=== PATIENT | female | born 1960 | race Caucasian/White ===

== ENCOUNTER 2016-09-05 10:54 | Inpatient (IN) | payer OTHER ==
--- NOTE | ~2016-09-05 | DS ---
Discharge Summary [address] [place]. [address] NAME: DIANA VERNON : 62 STATUS : ADM IN [facility]#: [id number] AGE: 56 ADM/REG DATE : 09/05/16 MR#: [id number] REPORT SERV DATE: 09/08/16 DICTATED BY: YANIRA ADAMS DATE: 09/08/16 REPORT STATUS : Draft TRANSCRIBED BY: MODL DATE: 09/08/16 ADMISSION DATE: 09/05/2016 DISCHARGE DATE: 09/08/2016 DIAGNOSES ON ADMISSION: 1. Status post left distal femoral fracture. 2. History of chronic obstructive pulmonary disease, stable. 3. Diabetes mellitus type 2. 4. History of rheumatoid arthritis. 5. History of obstructive sleep apnea. 6. 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 7. History of rheumatoid arthritis and osteoarthritis. 8. Morbid obesity. 9. Hyperlipidemia. 10.Anxiety. 11.History of estrogen deficiency. 12.Hypothyroidism. DIAGNOSES ON DISCHARGE: 1. Status post surgery for left femoral fracture per Dr. Acuna. 2. Chronic obstructive pulmonary disease, stable. 3. Diabetes, controlled. 4. Hypertension, controlled. 5. Chronic medical problems such as rheumatoid arthritis, controlled. No evidence of Guillain-[place] syndrome now. 6. Chronic pain, controlled. 7. Morbid obesity. CONSULTANTS ON THE CASE: Dr. Acuna, orthopedist and his nurse practitioner Kasia. Surgery on the left femur done on 09/06/2016, complex left total knee arthroplasty with long stems and open reduction and internal fixation of the distal femoral fracture. HISTORY OF PRESENT ILLNESS: Per dictation of Dr. Brunson on 09/05/2016. HOSPITAL COURSE: Briefly, the patient had uneventful hospital course. She underwent after surgery, which was done by Dr. Acuna. The patient was stable, doing well. She is doing physical therapy and plan the patient to go home. Dr. Acuna recommended the patient to follow up with him in a week or two as well as Kasia Hernadez give recommendations for Coumadin anticoagulation as well as the pain control was given per Dr. Kalpana Pedroza's nurse practitioner as well as the Coumadin. We will recommend to continue most of the home medications. Only I recommended to decrease the dose of glimepiride. She needs to decrease it to 2 mg twice a day because the patient reported that she had hypoglycemic episodes at home and I discussed with her risk of hypoglycemia as well as I told her to decrease to 2 mg twice daily to monitor her blood sugar and follow up with Dr. Pryor in a week regarding blood sugar control. Also, I told her if the blood sugar will be low, then she needs to go Discharge Summary [address] [facility]. [address] NAME: DIANA VERNON : 62 STATUS : ADM IN PAT#: [id number] AGE: 56 ADM/REG DATE : 09/05/16 MR#: [id number] REPORT SERV DATE: 09/08/16 DICTATED BY: YANIRA ADAMS DATE: 09/08/16 REPORT STATUS : Draft TRANSCRIBED BY: ALMA DATE: 09/08/16 down to 1 mg twice a day. Also, she was told to avoid nonsteroidal anti-inflammatory including naproxen since she is going to be on Coumadin. She is okay to continue her hormones, which is Estrace 1 mg daily, Zantac 150 b.i.d., ferrous sulfate 325 t.i.d., Lasix 80 mg a day, Neurontin 600 three times a day, Klonopin 0.5 three times a day, Lopid 600 p.o. b.i.d., magnesium oxide 800 daily, Depo-Provera 2.5 mg a day, paroxetine 30 mg a day, potassium chloride 20 mEq twice a day, pravastatin 20 mg daily, Requip 3 mg at bedtime, [place] Thyroid 120 daily, Coumadin sliding scale prescription given by Kasia nurse practitioner of Dr. Acuna, hydralazine 10 mg q.8h, tramadol 50 mg q.4h p.r.n., Symbicort two puffs inhaled twice a day, albuterol one puff inhaled q.4h p.r.n., Abilify 10 mg at bedtime, lorazepam 0.5 twice a day, MiraLAX one packet daily, metformin 1000 b.i.d., omega-3 fatty acid 2 g daily, Omegared one capsule daily, DHEA daily, Benadryl 25 at bedtime, glimepiride dose decreased to 2 mg twice a day, continue testosterone. The patient was discharged in a stable condition according to recommendation of orthopedist. Spent 45 minutes on discharge. MG/MODL Yanira Adams M.D. / [id number] CC: Sheri Burden M.D. W. Timothy Ballard, M.D.
--- NOTE | ~2016-09-05 | HP ---
History And Physical [address] [place]. [address] NAME: DIANA VERNON : 62 STATUS : ADM IN [facility]#: [id number] AGE: 56 ADM/REG DATE : 09/05/16 MR#: [id number] REPORT SERV DATE: 09/07/16 DICTATED BY: RAFAT ACUNA DATE: 09/06/16 REPORT STATUS : Draft TRANSCRIBED BY: ALMA DATE: 09/06/16 DATE OF ADMISSION: 09/05/2016 CHIEF COMPLAINT: Left knee pain. HISTORY: A 56-year-old female with severe incapacitating left knee pain for many years, got out of a [employer]kley chair according to her at [facility], fell, and fractured her knee about three weeks ago. She has been seen in the ER at another place about three times and then came in yesterday and requested me for evaluation and treatment. She has really had no treatment she said except for a knee immobilizer at this point. ALLERGIES: PHENAZOPYRIDINE. MEDICATIONS: See chart. PAST MEDICAL HISTORY: Myasthenia gravis, hypertension, hypercholesterolemia, chronic bronchitis, COPD, cellulitis, hypothyroidism, depression, anxiety. PAST SURGICAL HISTORY: Thymectomy in 1978, LORRAINE in 1995, appendectomy and ovary wedge resection in 2008, laser of the vulva for condyloma, thyroidectomy, renal stone, removal of kidney. SOCIAL HISTORY: Vape for about three years. No alcohol or illicit drug use. FAMILY HISTORY: No anesthetic complications. REVIEW OF SYSTEMS: As above. PHYSICAL EXAMINATION: GENERAL: She is alert and oriented x3, in distress as far as the knee goes; otherwise comfortable. HEENT: Atraumatic, normocephalic. NECK: Supple. CHEST: Symmetric and nontender. LUNGS: Per AA evaluation. CV: Regular. ABDOMEN: Soft, no mass. VITAL SIGNS: Afebrile, vital signs stable. EXTREMITIES: Both upper extremities, right lower extremity without acute trauma. Left knee with obvious effusion, pain, and obvious deformity. SKIN: Intact, warm and supple. 2+ pulses. NEURO: Sensorimotor without deficit. X-RAY: Severe end-stage DJD, now with a long intercondylar, supracondylar distal femur fracture. History And Physical [address] [place] [address] NAME: DIANA VERNON : 62 STATUS : ADM IN PAT#: [id number] AGE: 56 ADM/REG DATE : 09/05/16 MR#: [id number] REPORT SERV DATE: 09/07/16 DICTATED BY: RAFAT ACUNA DATE: 09/06/16 REPORT STATUS : Draft TRANSCRIBED BY: MODL DATE: 09/06/16 ASSESSMENT: Complex left distal femur fracture and severe degenerative joint disease. PLAN: ORIF/knee replacement. Risks, benefits, etc. explained. The patient wishes to proceed. WTB/MODL Michaela Acuna M.D. / [id number] CC: Sheri Burden M.D.
--- NOTE | ~2016-09-05 | OP ---
Record Of Operation [facility] [address] [place]. [address] NAME: DIANA VERNON : 62 STATUS : ADM IN PAT#: [id number] AGE: 56 ADM/REG DATE : 09/05/16 MR#: [id number] REPORT SERV DATE: 09/08/16 DICTATED BY: RAFAT RO DATE: 09/07/16 REPORT STATUS : Draft TRANSCRIBED BY: MODL DATE: 09/07/16 DATE OF PROCEDURE: 09/06/2016 PREOPERATIVE DIAGNOSES: Left knee severe end-stage degenerative joint disease with an intercondylar/distal femoral fracture. POSTOPERATIVE DIAGNOSES: Left knee severe end-stage degenerative joint disease with an intercondylar/distal femoral fracture. PROCEDURE: Complex left total knee arthroplasty with long stems and ORIF distal femur fracture. SURGEON: Michaela Ro M.D. LEATHER SOFTENER: See chart. DESCRIPTION OF PROCEDURE: The patient was taken to the operating room and placed supine on the table in normal fashion without incident. General anesthetic was induced per the anesthesiologist. The patient was carefully positioned, padded, prepped, and draped in normal sterile fashion. Left lower extremity exsanguinated and tourniquet inflated to 350. Sharp dissection was made to straight midline longitudinal incision and electrocautery through the fat. Sharp quad splitting approach was carried out. The patella was subluxed, arthrofibrotic bleb was decompressed. There was an unstable fracture of the medial femoral condyle that went well up into the metaphysis and was an intercondylar fracture right between the two condyles. These were held, anatomically reduced with a large fracture reduction forceps. The knee was brought up into flexion after lifting anterior and medial soft tissue of the anterior medial tibia and removing the posterior half of the fat pad. The ACL and PCL were excised in anterior to posterior fragment. Standard drill hole was placed in the distal femur followed by sequential reamer for 150 mm stem. Intramedullary guide was used to cut the distal femur, anterior and posterior cuts, anterior and posterior chamfer cuts and a box cut, while all holding, the condyles reduced with fracture reduction forceps. A trial component was then placed and attention directed to the tibia after removing the medial and lateral meniscal fragments. Extramedullary guide was used to cut the proximal tibia with the trial tibial component placed, there was excellent medial and lateral balance and excellent flexion and extension balance. The patella was cut with an oscillating saw after using patellar caliper and then drilled with the patellar drill guide. With the trial patella in place, there was excellent fixation. There was excellent balance. All surfaces were copiously irrigated with pulsatile lavage. Vacuum mixed cement was pressurized in the tibia, tibial component placed, impacted, and excess cement removed. Cement was pressurized in the femur and placed on the posterior runners of the femoral component which was placed, impacted, and excess cement removed. The patellar component placed, held with a clamp, and excess cement removed. Once all cement was hardened, the knee was taken through range of motion. While the cement was still wet, I placed two 4.5 screws one anterior to the stem and one posterior to the stem, gave an additional fixation to the fracture fragment at the metaphyseal level of distal femur. This gave us excellent fixation after trial, trying multiple inserts, chose the correct insert, excess cement was Record Of Operation [address] [address] NAME: DIANA VERNON : 62 STATUS : ADM IN [facility]#: [id number] AGE: 56 ADM/REG DATE : 09/05/16 MR#: [id number] REPORT SERV DATE: 09/08/16 DICTATED BY: RAFAT RO DATE: 09/07/16 REPORT STATUS : Draft TRANSCRIBED BY: ALMA DATE: 09/07/16 removed with an osteotome. Insert was placed, impacted, checked to be sure it was sound and snug knee, closed in a layered fashion over a medium ConstaVac drain superolaterally. The wound dressed sterilely. The patient wakened and taken to the postanesthesia care unit without incident. COMPLICATIONS: None. SPECIMENS: None. ESTIMATED BLOOD LOSS: Trace. WTB/MODL Michaela Ro M.D. / [id number] CC: Sheri Burden M.D.
--- NOTE | ~2016-09-05 | HP ---
History And Physical [address] [place]. [address] NAME: DIANA VERNON : 62 STATUS : ADM IN [facility]#: [id number] AGE: 56 ADM/REG DATE : 09/05/16 MR#: [id number] REPORT SERV DATE: 09/05/16 DICTATED BY: KORTNEY RADFORD DATE: 09/05/16 REPORT STATUS : Draft TRANSCRIBED BY: MODRyan DATE: 09/05/16 DATE OF ADMISSION: 09/05/2016 REASON FOR ADMISSION: Fractured left distal femur. 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 Jerzy Pryor through [facility]. She was getting out of out of her Berkley wheelchair while at [employer] about five days ago. She did a valgus stress maneuver on her left leg to stand up and has been having pain ever since. The pain got acutely worse last night. She came to the emergency room for evaluation, where x-ray has shown a distal left femur fracture. Dr. Acuna has been consulted, planning for surgery tomorrow. The hospitalists are planning to admit. The patient does have a history of COPD. She stopped smoking several years ago. She uses a vapor cigarette, electronic cigarette now. She lives in [place] and has been there all of her life. She has multiple medical problems, all of which are presently at some point of stability. MEDICATIONS: She is on the following medication: Albuterol one puff every four hours as needed, Abilify 10 mg p.o. at bedtime, aspirin 81 mg p.o. daily, Symbicort 160/4.5 two puffs b.i.d., clonazepam 0.5 mg three times a day, Ativan 0.5 mg p.o. b.i.d., Benadryl 25 mg at bedtime, estradiol 1 mg p.o. daily, ferrous sulfate 325 p.o. three times a day, furosemide 80 mg p.o. daily, gabapentin 600 mg p.o. t.i.d., gemfibrozil 600 mg p.o. b.i.d., glimepiride 4 mg p.o. b.i.d., hydralazine 10 mg p.o. q.8 hours, magnesium oxide 800 mg p.o. daily, medroxyprogesterone 2.5 mg p.o. daily, metformin 1000 mg p.o. b.i.d., Naprosyn 500 mg p.o. b.i.d., paroxetine 40 to 60 mg p.o. daily, MiraLAX 1 mg p.o. daily, potassium chloride 20 mEq p.o. b.i.d., DHEA three tablets p.o. daily, pravastatin 20 mg p.o. at bedtime, ranitidine 150 mg p.o. b.i.d., ropinirole 3 mg p.o. at bedtime, Thyroid [place] 120 mg p.o. daily, tramadol 50 mg p.o. q.4 hours p.r.n. for rheumatoid arthritis pain, omega-3 esters 2 g p.o. b.i.d., Omegared one capsule daily, testosterone compound one application daily of compounded testosterone. PAST MEDICAL HISTORY: Her other medical problems include COPD with possible obstructive sleep apnea. She has been scheduled for a sleep test. She is followed by Dr. Jose Raul Camacho for her COPD, but mostly, Yamilet Godinez. She has osteoarthritis, rheumatoid arthritis, hypertension, diabetes type 2, obesity, leg swelling, chronic pain, osteoporosis, and a history of Guillain-[place] syndrome back in 1978 while she was still in high school at [employer]. She had thymectomy in 1978 and appendectomy in 1995. She was diagnosed with Guillain-[place] syndrome by Dr. Armand Zamora after having been seen by Dr. Katy Dent for about a year prior to that, although with a thymectomy, wonder if myasthenia gravis was considered at some point. SOCIAL HISTORY: She quit smoking several years ago. She graduated from high school in 1978, History And Physical [address] 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 She gave up smoking about two years ago. She has had no alcohol use. She lives with her in an apartment behind [address]. She attended [employer] in the past. She is and lives with her . Has no children. She does not take any alcohol. REVIEW OF SYSTEMS: She has had no chest pain. No increasing shortness of breath. No wheezing. No fits, seizures, convulsions, unilateral weakness, melena, hematemesis, nausea, or diarrhea. PHYSICAL EXAMINATION: VITAL SIGNS: Blood pressure is 147/72 with a heart rate of 88, respiratory rate 18, afebrile. HEENT: EOMI. Sclerae are clear. Conjunctivae pink. NECK: No bruit. No JVD. GENERAL: The patient is obese, writhing in pain, sitting in a wheelchair. CHEST: Clear to A and P. HEART: Regular S1, S2 without murmur, gallop, or click. BREASTS: Grossly without mass. ABDOMEN: Obese, protuberant, nontender. No landmarks are palpable. EXTREMITIES: Have trace edema bilaterally. She does have dryness of the skin bilaterally. She does have swelling of the left knee with warmth over the left knee. No redness. It is very tender to touch. Extremities have no pulses palpable in the seated position. NEUROLOGIC: Her bathroom tiling professional is equal and symmetric bilaterally. Coordination is intact. She has no tremor. PSYCHIATRIC: She is alert, oriented, able to give history with speech cogent, and goal directed. LYMPHATICS: There is no adenopathy palpable. SKIN: Dryness. Stasis changes on the anterior shins bilaterally with slight edema. LABORATORY DATA: Sodium 139, potassium 3.5, creatinine 0.88, BUN 14, glucose was 72, calcium 9.6. Her hemoglobin was 12.6, hematocrit 41.3, white count 11.3, platelets were 356. INR is 1.0. The x-ray of the left knee did show evidence of oblique fracture of the distal femur extending into the intraarticular area with some intraarticular swelling. ASSESSMENT: 1. Oblique fracture, left distal femur for surgery in a.m. by Dr. Acuna. We will go ahead and give her subcu heparin and hold the dose before surgery. 2. Chronic obstructive pulmonary disease, stable. 3. Possibly some right heart failure with use of Lasix. History And Physical [address] [place]. [address] NAME: DIANA VERNON : 62 STATUS : ADM IN [facility]#: [id number] AGE: 56 ADM/REG DATE : 09/05/16 MR#: [id number] REPORT SERV DATE: 09/05/16 DICTATED BY: KORTNEY RADFORD DATE: 09/05/16 REPORT STATUS : Draft TRANSCRIBED BY: MODL DATE: 09/05/16 4. Pain, left knee. 5. Adult-onset diabetes mellitus. 6. Hypertension. 7. Rheumatoid arthritis. 8. Osteoarthritis. 9. Obstructive sleep apnea. 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 11.Chronic pain from rheumatoid arthritis mostly in the wrist and hands, on hydrocodone daily at home, though this is not listed as a home medication. 12.Obesity. 13.Osteoporosis. 14.Hyperlipidemia. 15.Anxiety, on two different anxiolytics. We will stop the clonazepam and use the Ativan solely. 16.Hyperlipidemia. 17.Estrogen deficiency, on combined estrogen and progesterone therapy. 18.Hypothyroidism, replaced. 19.Restless legs syndrome. 20.Testosterone compounded she is taking daily may induce a hypercoagulable state in this situation. We will discontinue that at this time. PLAN: Going for surgery tomorrow. Planning for Dr. Acuna to do the surgery. She will follow back up with sleep study, Dr. Camacho. ROSALINDA/NOAHL Kortney Radford M.D. / [id number] CC: Sheri Yang M.D. W. Timothy Ballard, M.D. Michael Dant, M.D. Michael T Czarnecki, M.D.
[~2016-09-05 10:54] MED LIST: ABILIFY10 PO; ABILIFY5 PO; ALBUTEROL0.63 MG/3 INH; ALBUTEROL5 INH; AMARYL4 PO; AMB10 PO; APRES10B PO; ARMOUR THYRO120 MG PO; ARMOUR THYRO30 MG PO; ARMOUR THYRO60 MG PO; ASAB PO; ATV.5 PO; AUG875 PO; BACDS PO; CALTRA600D PO; CELEXA40 MG PO; CLARIT10 PO; COENZYME Q10 PO; CORICIDI1 PO; DEMA20 PO; DHE1 PO; ESTRACE1 MG PO; ESTRATESHS PO; ESTRATEST PO; FERROUS SULF325 M1 PO; FISH-EPA1000 MG PO; FORTESTA60 GM TOP; GLUCOPHAGE1000 MG PO; GLUCPH PO; HALF81 PO; IBU-200200 MG PO; IRON325 MG PO; IVVIBRA; K500 PO; KDUR10 PO; KENALOG IN ORABA5 GM; KLONO1 PO; KLONO5 PO; KLOR-CON M2020 MEQ PO; L80 PO; LEVAQUIN750 MG PO; LEVOTHROID200 MCG PO; LIDOCAINE VISCOUS 2% TOP; LISTERINE PO; LOPID6 PO; LOTRISONE CREAM45 GM; LOVAZA1 GM PO; MAGOX4 PO; MEDROXYPR AC2.5 MG PO; MIRALAX POWDER1 PKT PO; MIRALAXPKT PO; MONODOX100 MG PO; MULTIVIT/MIN PO; NATURA2 OPH; NEOSPORIN OINT15 GM TOP; NEUR300 PO; NEUR600 PO; NORCO1 TA2 PO; NORCO1 TAB PO; NYS500UDL PO; NYS500UDL PO/LIQ; OMNICEF300 PO; P10 PO; P5 PO; PAX20 PO; PAXIL30 MG PO; PEPTO BISMOL LIQ1 ML PO; PERCOCET1 TA2 PO; PRAVAC PO; PRIN10 PO; PROAIR HFA INH; PROVENTSOL INH; PROVERA5 MG PO; PROVHFA INH; PTU PO; RANITIDINE300 MG PO; REFRESH OPH; REMERON30 MG PO; REMERON45 MG PO; REQUIP3 PO; STERAPRED DS10 MG; STOOL SOFTNER OTC PO; SUDAFED PO; TESTOSTERONE 2% TOP; VENTOLIN HFA INH; VITAMIN B PO; VITAMIN B-121000 MC1 SL; VITAMIN B12 PO; VOLT75 PO; VOLTXR100 PO; ZANTAC150 MG PO; ZANTAC300 MG PO; [UNRECOGNIZED DRUG - OTHER] PO
[2016-09-05] MEDS ORDERED: OMEGA 3 ETHYL ESTERS PO (13:09)
[2016-09-05] MEDS ORDERED: L80 PO (13:11)
[2016-09-05] MEDS ORDERED: MEGA RED PO (13:11)
[2016-09-05] MEDS ORDERED: DHE1 PO (13:12)
[2016-09-05] MEDS ORDERED: BEN25 PO (13:13)
[2016-09-05] MEDS ORDERED: SYMBICORT 160/41 INH INH (13:15)
[2016-09-05] MEDS ORDERED: ULTRAM50 PO (13:16)
[2016-09-05] MEDS ORDERED: ESTRACE1 MG PO (13:16)
[2016-09-05] MEDS ORDERED: AMARYL4 PO (13:17)
[2016-09-05 13:19] LABS: BASOPHILS 0.1 %; BASOPHILS ABSOLUTE 0.01 10/3/uL (0.0-0.16); EOSINOPHILS 2.2 %; EOSINOPHILS ABSOLUTE 0.24 10/3/uL (0.0-0.53); ER CBC TAT 0 Hrs 12 Mins; HEMATOCRIT 41.3 % (36.0-48.0); HEMOGLOBIN 12.6 g/dL (12.0-16.0); IMMATURE GRANULOCYTES 0.1 %; IMMATURE GRANULOCYTES ABSOLUTE 0.01 10/3/uL (0.0-0.11); LYMPHOCYTES 16.3 %; MEAN CORPUS HGB CONC 30.5 g/dL (32.0-36.0); MEAN CORPUSCULAR HEMOGLOB 27.3 pg (26.0-34.0); MEAN CORPUSCULAR VOLUME 89.6 fL (80-100); MEAN PLATELET VOLUME 9.1 fL (9.2-13.0); MONOCYTES 4.3 %; MONOCYTES ABSOLUTE 0.47 10/3/uL (0.21-1.20); NEUTROPHILS ABSOLUTE 8.52 10/3/uL (2.02-8.40); PLATELET COUNT 356 10/3/uL (150-400); RED CELL COUNT 4.61 10/6/uL (4.0-5.6); WHITE BLOOD CELLS 11.1 10/3/uL (4.5-10.5)
[2016-09-05] MEDS ORDERED: NAP500 PO (13:19)
[2016-09-05 13:20] LABS: MANUAL DIFF NO %; RBC DISTRIBUTION WIDTH 21.8 % (12.0-16.0)
[2016-09-05] MEDS ORDERED: MEDROXYPR AC2.5 MG PO (13:20)
[2016-09-05] MEDS ORDERED: [UNRECOGNIZED DRUG - OTHER] TOP (13:22)
[2016-09-05 13:26] LABS: PROTIME (NOT ORD) 13.1 SEC (12.0-14.5)
[2016-09-05 13:27] LABS: PARTIAL THROMBO TIME 34.7 SEC (22.5-37.2)
[2016-09-05 13:28] LABS: CALCIUM, SERUM 9.6 MG/DL (8.5-10.4); CHLORIDE, SERUM 96 MMOL/L (96-112); CO2 (CARBON DIOXIDE) 34 MMOL/L (24-34); CREATININE 0.88 MG/DL (0.55-1.02); GFR AFRICAN AMERICAN 86 ML/MIN (>=60); GFR NON AFRICAN AMERICAN 74 ML/MIN (>=60); POTASSIUM, SERUM 3.5 MMOL/L (3.5-5.3); SODIUM, SERUM 139 MMOL/L (135-148)
[2016-09-05 13:30] LABS: BUN (BLOOD UREA NITROGEN) 14 MG/DL (6-23); GLUCOSE, SERUM 72 MG/DL (60-99)
[2016-09-06 04:50] LABS: BASOPHILS 0.2 %; BASOPHILS ABSOLUTE 0.02 10/3/uL (0.0-0.16); EOSINOPHILS 2.8 %; EOSINOPHILS ABSOLUTE 0.25 10/3/uL (0.0-0.53); HEMATOCRIT 39.2 % (36.0-48.0); HEMOGLOBIN 12.2 g/dL (12.0-16.0); IMMATURE GRANULOCYTES 0.2 %; IMMATURE GRANULOCYTES ABSOLUTE 0.02 10/3/uL (0.0-0.11); LYMPHOCYTES 32.9 %; LYMPHOCYTES ABSOLUTE 2.93 10/3/uL (0.67-4.30); MANUAL DIFF NO %; MEAN CORPUS HGB CONC 31.1 g/dL (32.0-36.0); MEAN CORPUSCULAR HEMOGLOB 28.3 pg (26.0-34.0); MEAN PLATELET VOLUME 8.5 fL (9.2-13.0); MONOCYTES 5.8 %; MONOCYTES ABSOLUTE 0.52 10/3/uL (0.21-1.20); NEUTROPHILS 58.1 %; NEUTROPHILS ABSOLUTE 5.17 10/3/uL (2.02-8.40); PLATELET COUNT 308 10/3/uL (150-400); RBC DISTRIBUTION WIDTH 21.4 % (12.0-16.0); RED CELL COUNT 4.31 10/6/uL (4.0-5.6); WHITE BLOOD CELLS 8.9 10/3/uL (4.5-10.5)
[2016-09-06 05:21] LABS: CALCIUM, SERUM 9.1 MG/DL (8.5-10.4); CHLORIDE, SERUM 101 MMOL/L (96-112); CO2 (CARBON DIOXIDE) 32 MMOL/L (24-34); CREATININE 0.75 MG/DL (0.55-1.02); GFR AFRICAN AMERICAN 104 ML/MIN (>=60); GFR NON AFRICAN AMERICAN 90 ML/MIN (>=60); GLUCOSE, SERUM 80 MG/DL (60-99); POTASSIUM, SERUM 3.5 MMOL/L (3.5-5.3); SODIUM, SERUM 140 MMOL/L (135-148)
[2016-09-06 05:23] LABS: BUN (BLOOD UREA NITROGEN) 10 MG/DL (6-23)
[2016-09-07 05:57] LABS: HEMOGLOBIN 9.9 g/dL (12.0-16.0)
[2016-09-07 05:58] LABS: HEMATOCRIT 32.5 % (36.0-48.0)
[2016-09-07 06:00] LABS: INTERNATIONAL NORMAL RATI 1.1 UNITS (-); PROTIME (NOT ORD) 14.1 SEC (12.0-14.5)
[2016-09-07 06:13] LABS: BUN (BLOOD UREA NITROGEN) 7 MG/DL (6-23); CALCIUM, SERUM 8.5 MG/DL (8.5-10.4); CHLORIDE, SERUM 102 MMOL/L (96-112); CO2 (CARBON DIOXIDE) 27 MMOL/L (24-34); GFR AFRICAN AMERICAN 113 ML/MIN (>=60); GFR NON AFRICAN AMERICAN 98 ML/MIN (>=60); POTASSIUM, SERUM 3.7 MMOL/L (3.5-5.3); SODIUM, SERUM 139 MMOL/L (135-148)
[2016-09-07 06:14] LABS: GLUCOSE, SERUM 104 MG/DL (60-99)
[2016-09-08 05:07] LABS: HEMATOCRIT 30.6 % (36.0-48.0); HEMOGLOBIN 9.5 g/dL (12.0-16.0)
[2016-09-08 05:12] LABS: INTERNATIONAL NORMAL RATI 2.7 UNITS (-)
[2016-09-08 05:16] LABS: PROTIME (NOT ORD) 28.7 SEC (12.0-14.5)
[2016-09-08 05:20] LABS: BUN (BLOOD UREA NITROGEN) 9 MG/DL (6-23); CALCIUM, SERUM 8.8 MG/DL (8.5-10.4); CHLORIDE, SERUM 99 MMOL/L (96-112); CO2 (CARBON DIOXIDE) 30 MMOL/L (24-34); CREATININE 0.75 MG/DL (0.55-1.02); GFR AFRICAN AMERICAN 104 ML/MIN (>=60); GFR NON AFRICAN AMERICAN 90 ML/MIN (>=60); POTASSIUM, SERUM 4.2 MMOL/L (3.5-5.3); SODIUM, SERUM 138 MMOL/L (135-148)
[2016-09-08 05:23] LABS: GLUCOSE, SERUM 198 MG/DL (60-99)
[2016-09-08] MEDS ORDERED: PCET PO (11:56)
[2016-09-08] MEDS ORDERED: C25 (11:56)
== END 2016-09-08 17:56 | disposition home or self-care (01) | DRG 470 ==
LOC: ER 10:54 → 3SO 13:04
PROVIDERS: Hospitalist; Internal Medicine; Physician Assistant; Specialist
PROC: 0SRD0J9 Replacement of Left Knee Joint with Synthetic Substitute, Cemented, Open Approach (ICD-10-PCS; principal; 2016-09-05)
PROC: 0QSC04Z Reposition Left Lower Femur with Internal Fixation Device, Open Approach (ICD-10-PCS; 2016-09-05)
DX: S72.402A Unspecified fracture of lower end of left femur, initial encounter for closed fracture (principal); Z68.41 Body mass index [BMI] 40.0-44.9, adult; I10 Essential (primary) hypertension; J44.9 Chronic obstructive pulmonary disease, unspecified; E11.9 Type 2 diabetes mellitus without complications; G47.33 Obstructive sleep apnea (adult) (pediatric); E78.5 Hyperlipidemia, unspecified; F41.9 Anxiety disorder, unspecified; E03.9 Hypothyroidism, unspecified; G25.81 Restless legs syndrome; E66.01 Morbid (severe) obesity due to excess calories
CPT/HCPCS: 73560-LT; 80048; 82962; 83735; 85014; 85018; 85025; 85610; 85730; 87641; 88305; 88311; 90686; 94640; 96372; 96374; 97116-GP; 97161-GP; 97165-GO; 97530-GP; 99285; A9270-GY; C1713; C1776; G0008; J0690; J1170; J1885; J2175; J2250; J2270; J2274; J2405; J2795; J3010; J3370